=== PATIENT | female | born 1945 | race Caucasian/White ===

== ENCOUNTER 2022-08-03 09:44 | Observation (INO) | payer BC, MEDICARE ==
[2022-07-31 14:56] LABS: BASOPHILS # (AUTO) 0.1 (0.0-0.1); BASOPHILS % 0.7 % (0.0-1.0); EOSINOPHILS # (AUTO) 0.2 (0.0-0.4); EOSINOPHILS % 2.8 % (0.0-6.0); HEMATOCRIT 39.6 % (34.2-44.1); HEMOGLOBIN 12.5 g/dL (12.0-16.0); LYMPHOCYTES # (AUTO) 2.5 (1.0-3.2); LYMPHOCYTES % 34.3 % (18.0-39.1); MEAN CORPUSCULAR HEMOGLOBIN 28.9 pg (28-32); MEAN CORPUSCULAR HGB CONC 31.6 g/dL (31-35); MEAN CORPUSCULAR VOLUME 91.7 fL (81-99); MONOCYTES # (AUTO) 0.5 (0.2-0.8); MONOCYTES % 7.3 % (4.4-11.3); NEUTROPHILS # (AUTO) 3.9 (2.1-6.9); NEUTROPHILS % 54.6 % (38.7-80.0); PLATELET COUNT 301 x10e3/uL (140-360); RED BLOOD COUNT 4.32 x10e6/uL (3.6-5.1)
[~2022-08-03 09:44] MED LIST: ACETAMIN-CODE12.5 ML; BENICAR20 MG PO; CYCLOBENZAPRINE10 MG PO; GABAPENTIN400 MG PO; METOPROLOL TART50 MG PO; OMEPRAZOLE40 MG PO; ROPIVACAINE 246.25 MG, EPINEPHRINE HCL 1:1000 1ML 0.5 MG, CLONIDINE HCL 0.08 MG, KETORO... INJ ONE; SPIRONOLACTONE25 MG PO; TRIAMTERENE-HCTZ1 EA PO; VENLAFAXINE112.5 MG PO; Z.0.AMLODIPINE BESY1 PO; Z.0.ATENOLOL100 MG PO; Z.0.CELEXA20 MG PO; Z.0.XANAX1 MG PO
[2022-08-03] MEDS ORDERED: HYDROCODON-ACE1 EAC9 PO (10:28)
[2022-08-03] MEDS ORDERED: GABAPENTIN 300 MG CAP ONE (10:58)
[2022-08-03] MEDS ORDERED: DEXAMETHASONE SOD PHOS 10 MG/1 ML VIAL ONE (10:58)
[2022-08-03 11:11] LABS: ANION GAP 16.3 mmol/L (8-16); CALCIUM 9.2 mg/dL (8.4-10.2); CREATININE, SERUM 0.89 mg/dL (0.57-1.11); POTASSIUM 4.3 mmol/L (3.5-5.1)
[2022-08-03] MEDS ORDERED: TRANEXAMIC ACID 20 ML ONE (11:43)
[2022-08-03] MEDS ORDERED: Vancomycin IV 1,000 MG ONE (11:43)
[2022-08-03] MEDS ORDERED: SODIUM CHLORIDE 0.9% 500ML 500 ML ONE (11:44)
[2022-08-03] MEDS ORDERED: ONDANSETRON HCL INJ 2MG/ML 2ML 2 MG/ML VIAL ONE (12:55)
[2022-08-03] MEDS ORDERED: PROPOFOL IV EMULSION 10 MG/ML 20 ML VIAL ONE (12:55)
[2022-08-03] MEDS ORDERED: POVIDONE IODINE 0.05% 0.05 % ML PO ONE (12:55)
[2022-08-03] MEDS ORDERED: LIDOCAINE HCL 2% LOCAL INJ 5 ML SDV VIAL INJ ONE (12:55)
[2022-08-03] MEDS ORDERED: SEVOFLURANE INHAL SOLN 250 ML PEN BTL ONE (12:55)
[2022-08-03] MEDS ORDERED: EPINEPHRINE HCL 1:1000 1ML 1 MG/ML AMP ONE (13:08)
[2022-08-03] MEDS ORDERED: ROPIVACAINE 0.5% 5 MG/ML 30 ML SDV ONE (13:08)
[2022-08-03] MEDS ORDERED: HYDROMORPHONE 1MG/1ML INJ ONE (13:26)
[2022-08-03] MEDS ORDERED: DOCUSATE SODIUM 100 MG CAP PO PRN (14:00)
[2022-08-03] MEDS ORDERED: ACETAMINOPHEN 650 MG SUPP PR PRN (14:00)
[2022-08-03] MEDS ORDERED: HYDROCODONE/APAP 7.5MG-325MG 1 EA TAB PO PRN (14:00)
[2022-08-03] MEDS ORDERED: ONDANSETRON HCL INJ 2MG/ML 2ML 2 MG/ML VIAL IV PRN (14:00)
[2022-08-03] MEDS ORDERED: HYDROCODONE/APAP 5MG-325MG TAB PO PRN (14:00)
[2022-08-03] MEDS ORDERED: DIPHENHYDRAMINE HCL INJ 50 MG/ML VIAL IV PRN (14:00)
[2022-08-03] MEDS ORDERED: FENTANYL CITRATE/PF 100MCG/2 ML INJ ONE (14:40)
[2022-08-03 16:00] VITALS: BP_SYST 120; BP_SYST 121; BP_DIAS 81; BP_DIAS 82
[2022-08-03] MEDS ORDERED: ASPIRIN81 MG PO (16:07)
[2022-08-03] MEDS ORDERED: SODIUM CHLORIDE 0.9% 1000ML 1,000 ML IV SCH (16:15)
[2022-08-03] MEDS ORDERED: CELECOXIB 100 MG CAP PO SCH (17:00)
[2022-08-03] MEDS ORDERED: ASPIRIN 325 MG TAB PO SCH (17:00)
[2022-08-03] MEDS ORDERED: ZOLPIDEM TARTRATE 5 MG TAB PO PRN (21:00)
[2022-08-04] MEDS ORDERED: ACETAMINOPHEN 1000 MG/100 ML IV PRN (14:00)
== END 2022-08-03 19:20 | disposition home or self-care (01) ==
LOC: OR 09:44 → PACU V 13:59 → MED/SURG2 15:43
PROVIDERS: ADMIT Specialist; ATTEND Specialist
DX: M17.0 Bilateral primary osteoarthritis of knee (principal); I10 Essential (primary) hypertension; Z88.8 Allergy status to other drugs, medicaments and biological substances; R26.89 Other abnormalities of gait and mobility; Z96.651 Presence of right artificial knee joint; M79.7 Fibromyalgia; G89.4 Chronic pain syndrome; Z20.822 Contact with and (suspected) exposure to COVID-19; Z01.818 Encounter for other preprocedural examination
CPT/HCPCS: 0223U; 27447; 36415 ×2; 71046; 73560; 80048; 85025; 86850; 86900; 86920; 93005; 94799; 97110; 97116; 97161; 97530; C1713 ×2; C1776 ×4; G0378; J0171; J0690; J1100; J1170; J1885; J2001; J2405; J2704; J2795; J3010; J3370; J7040